=== PATIENT | male | born 1945 | race Caucasian/White ===

== ENCOUNTER 2023-02-25 03:18 | Emergency (ER) | payer MEDICARE, OTHER ==
[~2023-02-25] VITALS: Ht 182.9 cm; Wt 106.6 kg
[2023-02-25 03:22] VITALS: O2SAT 98
== END 2023-02-25 03:38 | disposition home or self-care (01) ==
LOC: ER 03:28
DX: I10 Essential (primary) hypertension (principal); J44.9 Chronic obstructive pulmonary disease, unspecified; I25.10 Atherosclerotic heart disease of native coronary artery without angina pectoris; E78.5 Hyperlipidemia, unspecified; Z90.49 Acquired absence of other specified parts of digestive tract
CPT/HCPCS: 99282

== ENCOUNTER → 2024-02-24 | Day surgery (SDC) | payer OTHER ==
[2024-02-18 12:06] LABS: BASOPHILS % 0.6 % (0.0-1.0); EOSINOPHILS # (AUTO) 0.2 (0.0-0.4); EOSINOPHILS % 4.2 % (0.0-6.0); HEMOGLOBIN 14.5 g/dL (14.0-18.0); LYMPHOCYTES % 20.4 % (18.0-39.1); MEAN CORPUSCULAR HEMOGLOBIN 30.3 pg (28-32); MEAN CORPUSCULAR VOLUME 92.1 fL (81-99); MONOCYTES # (AUTO) 0.4 (0.2-0.8); MONOCYTES % 6.9 % (4.4-11.3); NEUTROPHILS # (AUTO) 3.4 (2.1-6.9); NEUTROPHILS % 67.5 % (38.7-80.0); PLATELET COUNT 96 x10e3/uL (140-360); RED BLOOD COUNT 4.78 x10e6/uL (4.3-5.7); RED CELL DISTRIBUTION WIDTH 14.3 % (11.7-14.4); WHITE BLOOD COUNT 5.06 x10e3/uL (4.8-10.8)
[~2024-02-24] MED LIST: ACETAMINOPHEN PO; ASPIRIN81 MG PO; AZITHROMYCIN250 MG PO; CYCLOBENZAPRINE10 MG PO; EPHEDRINE SULFATE INJ 50 MG/ML VIAL ONE; FAMOTIDINE20 MG PO; LIDOCAINE HCL 2% LOCAL INJ 5 ML SDV VIAL INJ ONE; LORATADINE10 MG PO; LYRICA100 MG PO; METFORMIN HCL500 MG PO; OMEPRAZOLE40 MG PO; PRAVASTATIN SOD40 MG PO; PROPOFOL IV EMULSION 10 MG/ML 20 ML VIAL ONE; PROPOFOL IV EMULSION 10 MG/ML 50 ML VIAL IV ONE; QUETIAPINE FUM100 MG PO; SPIRIVA RESPIMAT4 GM INH; VALSARTAN-HCTZ1 EAC3 PO; VENTOLIN HFA18 GM INH; VIT B6 PO; VITAMIN B-121000 MCG PO; VITAMIN D250 MCG PO; WIXELA 250-501 EACH; ZETIA10 MG PO
[2024-02-24] MEDS: LACTATED RINGER'S 1,000 ML ONE (06:37)
[2024-02-24 08:53] VITALS: TEMP 97.6
[2024-02-24 09:20] VITALS: BP 130/64; PULSE 67; RESP 14; O2SAT 98
== END | disposition home or self-care (01) ==
LOC: OR 06:19
PROVIDERS: ATTEND Internal Medicine Gastroenterology
DX: K59.00 Constipation, unspecified (principal); D12.0 Benign neoplasm of cecum; D12.2 Benign neoplasm of ascending colon; D12.3 Benign neoplasm of transverse colon; D12.4 Benign neoplasm of descending colon; K64.8 Other hemorrhoids; K21.9 Gastro-esophageal reflux disease without esophagitis; I10 Essential (primary) hypertension; E78.5 Hyperlipidemia, unspecified; I25.10 Atherosclerotic heart disease of native coronary artery without angina pectoris; J44.9 Chronic obstructive pulmonary disease, unspecified; E11.9 Type 2 diabetes mellitus without complications; G89.29 Other chronic pain; F41.9 Anxiety disorder, unspecified; F32.A Depression, unspecified; F17.210 Nicotine dependence, cigarettes, uncomplicated; Z88.2 Allergy status to sulfonamides; Z01.810 Encounter for preprocedural cardiovascular examination; Z01.812 Encounter for preprocedural laboratory examination; Z79.82 Long term (current) use of aspirin; Z79.84 Long term (current) use of oral hypoglycemic drugs; Z79.899 Other long term (current) drug therapy; Z95.5 Presence of coronary angioplasty implant and graft
CPT/HCPCS: 36415; 45385; 85025; 93005; J2001; J2704 ×2; J7121; 45378

== ENCOUNTER 2024-02-25 20:24 | Emergency (ER) | payer MEDICARE, OTHER ==
[~2024-02-25] VITALS: Ht 185.4 cm; Wt 99.3 kg
[~2024-02-25 20:24] MED LIST changes: -AZITHROMYCIN250 MG PO; -EPHEDRINE SULFATE INJ 50 MG/ML VIAL ONE; -LIDOCAINE HCL 2% LOCAL INJ 5 ML SDV VIAL INJ ONE; -PROPOFOL IV EMULSION 10 MG/ML 20 ML VIAL ONE; -PROPOFOL IV EMULSION 10 MG/ML 50 ML VIAL IV ONE
[2024-02-25 22:02] LABS: BASOPHILS # (AUTO) 0.1 (0.0-0.1); BASOPHILS % 0.8 % (0.0-1.0); EOSINOPHILS # (AUTO) 0.2 (0.0-0.4); EOSINOPHILS % 3.9 % (0.0-6.0); HEMATOCRIT 41.2 % (38.2-49.6); LYMPHOCYTES # (AUTO) 1.1 (1.0-3.2); LYMPHOCYTES % 18.5 % (18.0-39.1); MEAN CORPUSCULAR HEMOGLOBIN 31.3 pg (28-32); MONOCYTES # (AUTO) 0.4 (0.2-0.8); MONOCYTES % 6.4 % (4.4-11.3); NEUTROPHILS # (AUTO) 4.2 (2.1-6.9); NEUTROPHILS % 69.9 % (38.7-80.0); PLATELET COUNT 113 x10e3/uL (140-360); RED BLOOD COUNT 4.48 x10e6/uL (4.3-5.7); RED CELL DISTRIBUTION WIDTH 14.9 % (11.7-14.4); WHITE BLOOD COUNT 5.95 x10e3/uL (4.8-10.8)
[2024-02-25 22:32] VITALS: PULSE 63; RESP 17; TEMP 97.8
[2024-02-25 22:32] LABS: ALANINE AMINOTRANSFERASE 22 IU/L (0-55); ALBUMIN 3.9 g/dL (3.5-5.0); ALBUMIN/GLOBULIN RATIO 1.3 (0.8-2.0); ALKALINE PHOSPHATASE 82 IU/L (40-150); ANION GAP 13.3 mmol/L (8-16); BILIRUBIN,TOTAL 0.5 mg/dL (0.2-1.2); BLOOD UREA NITROGEN 60 mg/dL (7-26); BUN/CREATININE RATIO 31 (6-25); CALCIUM 9.1 mg/dL (8.4-10.2); CARBON DIOXIDE 23 mmol/L (22-29); CHLORIDE 107 mmol/L (98-107); CREATINE KINASE 42 IU/L (30-200); CREATININE, SERUM 1.94 mg/dL (0.72-1.25); EST GLOMERULAR FILTRATION RATE 35 ML/MIN (>=60); GLUCOSE 120 mg/dL (74-118); SODIUM 138 mmol/L (136-145); TOTAL PROTEIN 6.9 g/dL (6.5-8.1)
[2024-02-25 22:37] LABS: POTASSIUM 5.3 mmol/L (3.5-5.1)
[2024-02-25 22:41] LABS: TROPONIN I < 0.05 ng/mL (0.0-0.40)
[2024-02-25] MEDS ORDERED: IOPAMIDOL 370 MG/ML 100 ML INFUS..BTL INJ ONE (23:09)
[2024-02-25] MEDS: SODIUM CHLORIDE 0.9% 1000ML 2,000 ML IV STA (23:59)
[2024-02-26] MEDS: SODIUM BICARBONATE 8.4% INJ 50 ML SYR IV STA (00:30)
[2024-02-26] MEDS: DEXTROSE 50% SYRINGE 50 ML IV ONE (00:33)
[2024-02-26] MEDS: FUROSEMIDE INJ 10 MG/ML 10 ML VIAL IV ONE (00:34)
[2024-02-26] MEDS: INSULIN REGULAR, HUMAN 100 UNIT/1 ML IV ONE (00:36)
[2024-02-26] MEDS: DICYCLOMINE HCL 20 MG/2 ML VIAL IM STA (01:27)
[2024-02-26] MEDS ORDERED: AZITHROMYCIN250 MG PO (01:39)
[2024-02-26 02:07] VITALS: BP 126/68; PULSE 65; RESP 16; TEMP 97; O2SAT 97
== END 2024-02-26 02:09 | disposition home or self-care (01) ==
LOC: ER 20:45
DX: R10.30 Lower abdominal pain, unspecified (principal); I95.9 Hypotension, unspecified; R42 Dizziness and giddiness; J18.9 Pneumonia, unspecified organism; E87.5 Hyperkalemia; I10 Essential (primary) hypertension; I25.10 Atherosclerotic heart disease of native coronary artery without angina pectoris; E78.5 Hyperlipidemia, unspecified; J44.9 Chronic obstructive pulmonary disease, unspecified
CPT/HCPCS: 36415; 70450; 71045; 74177; 80053; 82550; 82948; 83690; 83880; 84484; 85025; 93005; 99284; J1940; J7030; J7799; Q9967; U0002

== ENCOUNTER 2025-05-16 04:55 | Inpatient (IN) | payer MEDICARE, OTHER ==
[2025-05-16] VITALS (8 sets, daily range): BP systolic 135–157; BP diastolic 50–81; PULSE 54–77; RESP 16–19; TEMP 97.7–98.1; O2SAT 95–100
[~2025-05-16] VITALS: Ht 185.4 cm; Wt 106.1 kg
[~2025-05-16 04:55] MED LIST changes: +AZITHROMYCIN250 MG PO
[2025-05-16 06:00] LABS: BASOPHILS % 0.4 % (0.0-1.0); EOSINOPHILS % 4.3 % (0.0-6.0); LYMPHOCYTES % 19.0 % (18.0-39.1); MONOCYTES % 7.3 % (4.4-11.3); NEUTROPHILS % 68.7 % (38.7-80.0); RED CELL DISTRIBUTION WIDTH 13.8 % (11.7-14.4)
[2025-05-16 06:25] LABS: EST GLOMERULAR FILTRATION RATE 74.0 ML/MIN (>=60)
[2025-05-16 06:28] LABS: CORONAVIRUS COVID-19 AG NEGATIVE (NEGATIVE)
[2025-05-16] MEDS ORDERED: ONDANSETRON HCL INJ 2MG/ML 2ML 2 MG/ML VIAL IV PRN (07:15)
[2025-05-16] MEDS ORDERED: ALBUTEROL/IPRATROPIUM 3 ML NEB NEB PRN (07:15)
[2025-05-16] MEDS: SODIUM CHLORIDE 0.9% 250ML 250 ML ONE (12:21)
[2025-05-16] MEDS: ASPIRIN 81 MG ENTERIC COATED PO SCH (12:21)
[2025-05-16] MEDS ORDERED: DIPHENHYDRAMINE HCL 25 MG CAP PO PRN (15:00)
[2025-05-16] MEDS ORDERED: HYDRALAZINE HCL 20 MG/ML VIAL IV PRN (15:00)
[2025-05-16] MEDS ORDERED: POTASSIUM CHLORIDE 20 MEQ TAB CR PO PRN (15:00)
[2025-05-16] MEDS ORDERED: DOCUSATE SODIUM 100 MG CAP PO PRN (15:00)
[2025-05-16] MEDS ORDERED: SIMETHICONE 80 MG CHEW PO PRN (15:00)
[2025-05-16] MEDS ORDERED: DEXTROSE 50% SYRINGE 50 ML IV PRN (15:00)
[2025-05-16] MEDS ORDERED: BENZONATATE 100 MG CAP PO PRN (15:00)
[2025-05-16] MEDS ORDERED: ACETAMINOPHEN 325 MG TAB PO PRN (15:00)
[2025-05-16] MEDS ORDERED: IOPAMIDOL 370 MG/ML 100 ML INFUS..BTL INJ ONE (16:29)
[2025-05-16] MEDS: PREDNISONE 20 MG TAB PO SCH (16:54)
[2025-05-16] MEDS: ENOXAPARIN SOD INJ 40 MG/0.4 ML SYR SC SCH (16:55)
[2025-05-16] MEDS: BUDESONIDE 0.5MG/2 ML NEB INH SCH (19:00)
[2025-05-16] MEDS: MELATONIN 5 MG TABLET PO PRN (21:56)
[2025-05-16] MEDS: GUAIFENESIN/CODEINE 5 ML LIQD PO PRN (21:56)
[2025-05-16] MEDS: QUETIAPINE FUMARATE 100 MG TAB PO SCH (22:51)
[2025-05-17] VITALS (8 sets, daily range): BP systolic 123–141; BP diastolic 49–61; PULSE 54–74; RESP 17–18; TEMP 97.5–98; O2SAT 95–99
[2025-05-17 05:47] LABS: BASOPHILS % 0.2 % (0.0-1.0); EOSINOPHILS % 0.2 % (0.0-6.0); LYMPHOCYTES % 13.9 % (18.0-39.1); MONOCYTES % 2.5 % (4.4-11.3); NEUTROPHILS % 82.4 % (38.7-80.0); RED CELL DISTRIBUTION WIDTH 13.7 % (11.7-14.4)
[2025-05-17 06:23] LABS: CHOL/HDL RATIO 3.8 (3.9-4.7); EST GLOMERULAR FILTRATION RATE 66.0 ML/MIN (>=60); LDL CHOLESTEROL 62.0 MG/DL (60-130)
[2025-05-17] MEDS: TIOTROPIUM 18 MCG INH POWDER INH SCH (09:00)
[2025-05-17] MEDS ORDERED: QUETIAPINE FUMARATE 100 MG TAB PO SCH (09:00)
[2025-05-17] MEDS: PANTOPRAZOLE SOD 40 MG TABEC PO SCH (10:12)
[2025-05-17] MEDS: ASPIRIN 81 MG CHEW TAB PO SCH (10:12)
[2025-05-17] MEDS: PREGABALIN 50 MG CAP PO SCH (10:12)
[2025-05-17] MEDS: EZETIMIBE 10 MG TAB PO SCH (10:13)
[2025-05-17] MEDS: CYCLOBENZAPRINE HCL 10 MG TAB PO SCH (10:13)
[2025-05-17] MEDS: PRAVASTATIN 20 MG TAB PO SCH (21:27)
[2025-05-17] MEDS: SODIUM CHLORIDE 0.9% 250ML 250 ML ONE (21:33)
[2025-05-18] VITALS (10 sets, daily range): BP systolic 124–158; BP diastolic 57–67; PULSE 50–72; RESP 18–21; TEMP 97.6–98.6; O2SAT 95–100
[2025-05-18] MEDS ORDERED: LACTULOSE SYRUP 20 GM/30 ML UDC PO PRN (09:00)
[2025-05-18] MEDS ORDERED: MAGNESIUM HYDROXIDE 30 ML UDC PO PRN (09:00)
[2025-05-18] MEDS: DOCUSATE SODIUM 100 MG CAP PO SCH (09:37)
[2025-05-19] VITALS (11 sets, daily range): BP systolic 120–167; BP diastolic 63–79; PULSE 50–82; RESP 18–22; TEMP 97.6–98.7; O2SAT 95–100
[2025-05-19 06:02] LABS: EST GLOMERULAR FILTRATION RATE 83.0 ML/MIN (>=60)
[2025-05-19] MEDS ORDERED: HEPARIN SOD/SOD CHLORIDE 2,000 ML ONE (11:01)
[2025-05-19] MEDS ORDERED: SODIUM CHLORIDE 0.9% 1000ML 1,000 ML ONE (11:01)
[2025-05-19] MEDS ORDERED: IOPAMIDOL 370 MG/ML 100 ML INFUS..BTL INJ ONE (11:01)
[2025-05-19] MEDS ORDERED: LIDOCAINE HCL 2% LOCAL 20 ML VIAL ONE (11:01)
[2025-05-19] MEDS ORDERED: HEPARIN SOD (PORCINE) 1000 UNIT/ML 30ML ONE (11:16)
[2025-05-19] MEDS ORDERED: NITROGLYCERIN/D5W 200 MCG/ML 250 ML ONE (11:16)
[2025-05-19] MEDS ORDERED: BIVALRIUDIN 250 MG/VIAL VIAL IV ONE (11:37)
[2025-05-19] MEDS ORDERED: FENTANYL CITRATE/PF 100MCG/2 ML INJ ONE (11:44)
[2025-05-19] MEDS ORDERED: MIDAZOLAM HCL 2 MG/2 ML VIAL ONE ×2 (11:44→12:02)
[2025-05-19] MEDS ORDERED: PRASUGREL 10 MG TAB ONE (12:15)
[2025-05-19] MEDS ORDERED: ONDANSETRON HCL INJ 2MG/ML 2ML 2 MG/ML VIAL IV PRN (13:15)
[2025-05-19] MEDS: ALBUTEROL/IPRATROPIUM 3 ML NEB NEB PRN (14:25)
[2025-05-19] MEDS: HYDROMORPHONE 1MG/1ML INJ IV STA (16:58)
[2025-05-19] MEDS: SODIUM CHLORIDE 0.9% 1000ML 1,000 ML IV SCH (17:04)
[2025-05-20 06:13] LABS: BASOPHILS % 0.1 % (0.0-1.0); EOSINOPHILS % 0.1 % (0.0-6.0); LYMPHOCYTES % 18.0 % (18.0-39.1); MONOCYTES % 7.2 % (4.4-11.3); NEUTROPHILS % 74.2 % (38.7-80.0); RED CELL DISTRIBUTION WIDTH 14.0 % (11.7-14.4)
[2025-05-20 06:37] LABS: EST GLOMERULAR FILTRATION RATE 89.0 ML/MIN (>=60)
[2025-05-20 07:06] VITALS: PULSE 80; RESP 20; O2SAT 95
[2025-05-20 08:39] VITALS: BP 118/71; PULSE 52; RESP 18; TEMP 97.6; O2SAT 98
[2025-05-20] MEDS: PRASUGREL 10 MG TAB PO SCH (10:43)
[2025-05-20 10:48] VITALS: BP 118/71; PULSE 52; RESP 18; TEMP 97.6; O2SAT 98
[2025-05-20 11:00] VITALS: BP 128/85; PULSE 76; RESP 20; TEMP 97; O2SAT 100
== END 2025-05-20 15:50 | disposition home or self-care (01) | DRG 321 ==
LOC: ER 05:33 → ERHOLD 07:11 → MED/SURG2 09:52
PROVIDERS: ADMIT Internal Medicine; ATTEND Internal Medicine
PROC: 027135Z Dilation of Coronary Artery, Two Arteries with Two Drug-eluting Intraluminal Devices, Percutaneous Approach (ICD-10-PCS; principal; 2025-05-19)
PROC: 4A023N7 Measurement of Cardiac Sampling and Pressure, Left Heart, Percutaneous Approach (ICD-10-PCS; 2025-05-19)
PROC: B2111ZZ Fluoroscopy of Multiple Coronary Arteries using Low Osmolar Contrast (ICD-10-PCS; 2025-05-19)
PROC: B2151ZZ Fluoroscopy of Left Heart using Low Osmolar Contrast (ICD-10-PCS; 2025-05-19)
DX: I44.1 Atrioventricular block, second degree (principal); J15.9 Unspecified bacterial pneumonia; J44.0 Chronic obstructive pulmonary disease with (acute) lower respiratory infection; J44.1 Chronic obstructive pulmonary disease with (acute) exacerbation; R07.9 Chest pain, unspecified; I25.10 Atherosclerotic heart disease of native coronary artery without angina pectoris; D69.59 Other secondary thrombocytopenia; E78.5 Hyperlipidemia, unspecified; E11.42 Type 2 diabetes mellitus with diabetic polyneuropathy; I10 Essential (primary) hypertension; J43.9 Emphysema, unspecified; G47.00 Insomnia, unspecified; E27.9 Disorder of adrenal gland, unspecified; K76.89 Other specified diseases of liver; R00.1 Bradycardia, unspecified; Z11.52 Encounter for screening for COVID-19; Z79.82 Long term (current) use of aspirin; Z79.84 Long term (current) use of oral hypoglycemic drugs; Z79.51 Long term (current) use of inhaled steroids; Z95.5 Presence of coronary angioplasty implant and graft; Z90.49 Acquired absence of other specified parts of digestive tract; Z88.2 Allergy status to sulfonamides; F17.200 Nicotine dependence, unspecified, uncomplicated
CPT/HCPCS: 36415; 71045; 71260; 76937; 80048; 80053; 80061; 82550; 83735; 83880; 84443; 84484; 85014; 85018; 85025; 87040; 87071; 87205; 92920; 92921; 93005; 93306; 93458; 94640; 94799; 99152; 99153; 99284; C1725; C1760; C1769; C1874; C1887; J0583; J0696; J1171; J1644; J1650; J2003; J2250; J2470; J7030; J7050; J7512; Q9967